=== PATIENT | male | born 1950 | race Caucasian/White ===

== ENCOUNTER → 2018-09-22 | Outpatient (CLI) | payer OTHER ==
--- NOTE | 2018-09-22 15:25 | MR ---
EXAMINATION TYPE: MR pituitary wo/w con DATE OF EXAM: 09/22/2018 COMPARISON: Prior MRI brain August 28, 2016 HISTORY: F/U to prior adenoma removal TECHNIQUE: Multiplanar, multisequence images of the brain and brainstem is performed without and with IV contras t, utilizing 7 mL intravenous Gadavist . Pituitary gland protocol. 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 Postsurgical asif ge at level of sella is redemonstrated. No new areas of suspicious nodular enhancement at sella is id entified to suggest neoplastic recurrence. Suprasellar cistern is maintained. Optic chiasm is not eff aced. Adjacent carotid siphons are unremarkable. Visualized brain parenchyma remains within normal li mits without new hydrocephalus. IMPRESSION: Overall stable findings, no new suspicious enhancement to suggest neoplasm or adenoma rec urrence within sella or suprasellar region.
== END | disposition home or self-care (01) ==
LOC: RADMRIMAIN 13:43
PROVIDERS: ATTEND Physician Assistant Medical
DX: D35.2 Benign neoplasm of pituitary gland (principal)
CPT/HCPCS: 82565; 70553; 36415; A9585

== ENCOUNTER → 2018-10-06 | Outpatient (CLI) | payer OTHER ==
--- NOTE | 2018-10-07 09:24 | US ---
EXAMINATION TYPE: US carotid duplex BILAT DATE OF EXAM: 10/06/2018 COMPARISON: NONE CLINICAL HISTORY: R42 Dizziness. Dizziness, light headedness, left arm pain EXAM MEASUREMENTS: RIGHT: Peak Systolic Velocity (PSV) cm/sec ----- Right CCA: 78.7 ----- Right ICA: 114.1 ----- Right ECA: 108.3 ICA/CCA ratio: 1.4 RIGHT: End Diastole cm/sec ----- Right CCA: 23.7 ----- Right ICA: 38.9 ----- Right ECA: 18.1 LEFT: Peak Systolic Velocity (PSV) cm/sec ----- Left CCA: 85.3 ----- Left ICA: 122.2 ----- Left ECA: 126.4 ICA/CCA ratio: 1.4 LEFT: End Diastole cm/sec ----- Left CCA: 24.9 ----- Left ICA: 47.4 ----- Left ECA: 16.4 VERTEBRALS (direction of flow): Right Vertebral: Antegrade Left Vertebral: Antegrade Rhythm: Normal No elevated velocities, no significant stenosis. IMPRESSION: Mild degree of grayscale atheromatous plaquing with no sonographically evident hemodynam ically significant stenosis within either visualized carotid arterial system. Criteria for Assigning % of Stenosis / Diameter reduction (Estimation based on the indirect measurements of the internal carotid artery velocities (ICA PSV). 1. Normal (no stenosis)=ICA PSV < 125 cm/s: ratio < 2.0: ICA EDV<40 cm/s. 2. Less than 50% stenosis=ICA PSV < 125 cm/s: ratio < 2.0: ICA EDV<40 cm/s. 3. 50 to 69% stenosis=ICA PSV of 125 to 230 cm/s: ration 2.0 ? 4.0: ICA EDV 40-100 cm/s. 4. Greater than 70% stenosis to near occlusion= ICA PSV > 230 cm/s: ratio > 4.0: ICA EDV > 100 cm/s. 5. Near occlusion= ICA PSV velocities may be low or undetectable: variable ratio and ICA EDV. 6. Total occlusion=unable to detect flow.
== END ==
LOC: RADUSWWP 16:12
DX: I70.90 Unspecified atherosclerosis (principal)
CPT/HCPCS: 93880